=== PATIENT | male | born 1960 | race Caucasian/White ===

== ENCOUNTER 2018-03-10 17:27 | Emergency (ER) | payer BC ==
[2018-03-10 17:35] VITALS: BP 157/98; PULSE 72; RESP 20; TEMP 97.9
--- NOTE | 2018-03-10 19:35 | US ---
EXAMINATION TYPE: US venous doppler duplex LE LT DATE OF EXAM: 03/10/2018 7:30 PM COMPARISON: NONE CLINICAL HISTORY: Pain. Broke left foot bone 1 month ago, left calf pain SIDE PERFORMED: Left TECHNIQUE: The lower extremity deep venous system is examined utilizing real time linear array sonog daysi with graded compression, doppler sonography and color-flow sonography. VESSELS IMAGED: External Iliac Vein (EIV) Common Femoral Vein Deep Femoral Vein Greater Saphenous Vein * Femoral Vein Popliteal Vein Small Saphenous Vein * Proximal Calf Veins (* superficial vessels) Left Leg: Negative for DVT IMPRESSION: No evidence of deep venous thrombosis in the left leg.
--- NOTE | 2018-03-10 20:22 | ED ---
Extremity Problem HPI - General Chief complaint: Extremity Problem,Nontraumatic Stated complaint: calf muscle pain Time Seen by Provider: 03/10/18 19:57 Source: patient, RN notes reviewed, old records reviewed Mode of arrival: ambulatory Limitations: no limitations - History of Present Illness Initial comments: 51 year old male presents for his department today with left calf pain. He's been having intermittent calf pain and spasming for the past few days. He reports the pain seemed worse today. He has a history of left foot fracture. Currently in a removable boot. He follows up with orthopedic in [place]. His is a nurse practitioner. She was concern for blood clot. Denies any chest pain or shortness of breath. Patient denies any recent fever, chills, shortness of breath, chest pain, back pain, abdominal pain, nausea vomiting, numbness or tingling, dysuria or hematuria, constipation or diarrhea, headaches or visual changes, or any other current symptoms - Related Data Allergies Allergy/AdvReac Type Severity Reaction Status Date / Time Sulfa (Sulfonamide Allergy Unknown Verified 03/10/18 17:35 Antibiotics) Review of Systems ROS Statement: Those systems with pertinent positive or pertinent negative responses have been documented in the HPI. ROS Other: All systems not noted in ROS Statement are negative. Past Medical History Past Medical History: Hyperlipidemia, Hypertension History of Any Multi-Drug Resistant Organisms: None Reported Past Surgical History: No Surgical Hx Reported Past Psychological History: No Psychological Hx Reported Smoking Status: Never smoker Past Alcohol Use History: Daily Past Drug Use History: None Reported General Exam - General Exam Comments Initial Comments: Well-appearing 57-year-old male. General: Well appearing, well nourished, in no distress. Oriented x 3, normal mood and affect . Ambulating without difficulty. Skin: Good turgor, no rash, unusual bruising or prominent lesions Heart: No cardiomegaly or thrills; regular rate and rhythm, no murmur or gallop Lungs: Clear to auscultation and percussion Abdomen: Bowel sounds normal, no tenderness, organomegaly, masses, or hernia Back: Spine normal without deformity or tenderness, no CVA tenderness Rectal: Normal sphincter tone, no hemorrhoids or masses palpable Extremities: No amputations or deformities, cyanosis, edema or varicosities, peripheral pulses intact. Left-sided mid calf tenderness. No significant swelling or erythema. Patient has a removable walking boot. Swelling over the left fifth metatarsal. Patient states he has a fifth metatarsal fracture. He has normal pulses and sensation distally. Musculoskeletal: Normal gait and station. No misalignment, asymmetry, crepitation, defects, tenderness, masses, effusions, decreased range of motion, instability, atrophy or abnormal strength or tone in the head, neck, spine, ribs , pelvis or extremities. Neurologic: CN 2-12 normal. Sensation to pain, touch, and proprioception normal. DTRs normal in upper and lower extremities. No pathologic reflexes. Psychiatric: Oriented X3, intact recent and remote memory, judgment and insight , normal mood and affect. Limitations: no limitations Course Vital Signs 03/10/18 17:32 Temperature 97.9 F Pulse Rate 72 Respiratory 20 Rate Blood Pressure 157/98 O2 Sat by Pulse 98 Oximetry Medical Decision Making - Medical Decision Making Patient is 7-year-old male with history of left foot fracture. Currently a walking boot. Complaint of left calf pain and cramping. Concern for blood clot. He has no significant erythema of the leg. No significant swelling. Compartments are soft. Normal sensation and pulses distally. Patient ultrasound was negative for DVT. Patient is pleased. Discussed likely muscle cramp. Discussed Motrin Tylenol and following up with his orthopedic. - Radiology Data Radiology results: report reviewed Ultrasound is negative for DVT. Disposition Clinical Impression: Pain of left calf Disposition: HOME SELF-CARE Condition: Good Instructions: Leg Cramps (ED) Additional Instructions: Follow-up with primary care physician and your adult specialist. Rest, continue to elevate the leg. Massage the muscles that is cramping. Patient should return to the emergency department for reevaluation of swelling persists or worsens. You may need an repeat ultrasound. Is patient prescribed a controlled substance at d/c from ED?: No Referrals: Seth Mccabe DO [Primary Care Provider] - 1-2 days Time of Disposition: 20:21
== END 2018-03-10 20:30 | disposition home or self-care (01) ==
LOC: EC 17:27
DX: M79.662 Pain in left lower leg (principal); R25.2 Cramp and spasm; Z88.2 Allergy status to sulfonamides
CPT/HCPCS: 99284

== ENCOUNTER → 2023-05-26 | Outpatient (CLI) | payer BC ==
--- NOTE | 2023-05-26 15:43 | MR ---
EXAMINATION TYPE: MR knee LT wo con DATE OF EXAM: 05/26/2023 COMPARISON: None HISTORY: Left knee pain TECHNIQUE: Multiplanar, multisequence imaging of the left knee is performed without IV contrast. FINDINGS: There is a large joint effusion with with plicae in the suprapatellar joint space. The patellar carti juany is intact. The quadriceps and patellar tendon are intact. There is no bone contusion or fracture. The cruciate ligaments are intact. There is no definite meniscal injury. There is a grade 2 strain of the medial collateral ligament and a mild strain of the lateral collater al ligament There is no significant degeneration of the medial and lateral compartments of the knee. IMPRESSION: 1. Large joint effusion. 2. Grade 2 strain of the medial collateral ligament and mild strain of the lateral collateral ligamen t. 3. No cruciate ligament injury. 4. No meniscal tear. 5. No bone contusion or fracture.
== END | disposition home or self-care (01) ==
LOC: RADMRIMAIN 07:32
PROVIDERS: ATTEND Family Medicine
DX: M23.632 Other spontaneous disruption of medial collateral ligament of left knee (principal); M23.642 Other spontaneous disruption of lateral collateral ligament of left knee; M25.462 Effusion, left knee

== ENCOUNTER → 2023-11-30 | Outpatient (CLI) | payer BC ==
--- NOTE | 2023-11-30 12:54 | XR ---
EXAMINATION TYPE: XR chest 2V DATE OF EXAM: 11/30/2023 COMPARISON: NONE HISTORY: Shortness of breath TECHNIQUE: Frontal and lateral views of the chest are obtained. FINDINGS: Scattered senescent parenchymal changes noted. Hyperinflation compatible with COPD. No evidence for infiltrate. No evidence for atelectasis. Heart size is stable. Mediastinal structures are stable and grossly unremarkable. No evidence for hilar prominence. Degenerative changes dorsal spine. IMPRESSION: 1. No evidence for acute pulmonary disease. [facility], , 11/30/2023 12:51 PM
== END | disposition home or self-care (01) ==
LOC: RADXRYALE 10:57
PROVIDERS: ATTEND Physician Assistant
DX: Z01.818 Encounter for other preprocedural examination (principal)
CPT/HCPCS: 71046